=== PATIENT | female | born 1950 | race Caucasian/White ===

== ENCOUNTER 2017-03-23 13:14 | Emergency (ER) | payer MEDICARE ==
[~2017-03-23] VITALS: Ht 157.5 cm; Wt 75.0 kg
[~2017-03-23 13:14] MED LIST: ACIP20TA19 PO; AMLO5 PO; APIX2.5T PO; ATOR40TA49 PO; BUPR-175 PO; CLON1 PO; LEVA750T PO; PRED10 PO; TUSSSUS PO; Z.0.OXYGENDME FM; Z.0.OXYGENDME NC
[2017-03-23 13:16] VITALS: BP 123/87; PULSE 80; RESP 16; TEMP 98.2; O2SAT 95
[2017-03-23 13:31] VITALS: BP 156/75; PULSE 101; RESP 19; TEMP 98.7; O2SAT 100
[2017-03-23] MEDS ORDERED: [UNRECOGNIZED DRUG - CODE] IV (13:44)
[2017-03-23] MEDS ORDERED: [UNRECOGNIZED DRUG - CODE] (13:44)
[2017-03-23] MEDS ORDERED: CLON1TAB PO (13:44)
[2017-03-23] MEDS ORDERED: ATOR40TA16 PO (13:44)
[2017-03-23] MEDS ORDERED: APIX2.5T PO (13:44)
[2017-03-23] MEDS ORDERED: PEMB1SOL (13:44)
[2017-03-23] MEDS ORDERED: PROT40TA PO (13:44)
[2017-03-23] MEDS ORDERED: BUPR150XL PO (13:44)
[2017-03-23] MEDS ORDERED: FURO1TAB62 PO (13:44)
[2017-03-23 13:56] LABS: HEMATOCRIT 35.9 % (35.0-46.0); MEAN CELL VOLUME 91.8 FL (80.0-100.0); MEAN CORPUSCULAR HEMOGLOBIN 30.3 PG (27.0-34.0); PLATELET COUNT 248 TH/MM3 (150-450); RED BLOOD COUNT 3.91 MIL/MM3 (4.00-5.30); RED CELL DISTRIBUTION WIDTH 18.9 % (11.6-17.2); WHITE BLOOD COUNT 39.5 TH/MM3 (4.0-11.0)
[2017-03-23 14:04] LABS: ALT (GPT) 21 U/L (10-53); ANION GAP 4 MEQ/L (5-15); AST (GOT) 36 U/L (15-37); BLOOD UREA NITROGEN 15 MG/DL (7-18); CHLORIDE 99 MEQ/L (98-107); GLOMERULAR FILTRATION RATE 81 ML/MIN (>89); SODIUM (NA) 138 MEQ/L (136-145)
[2017-03-23 14:05] LABS: HEMO FLAGS AUTO DIFF
[2017-03-23 14:06] LABS: ALKALINE PHOSPHATASE 276 U/L (45-117); TOTAL BILIRUBIN ADULT 0.2 MG/DL (0.2-1.0)
--- NOTE | 2017-03-23 14:17 | RADRPT ---
EXAM DATE/TIME: 03/23/2017 13:29 [facility] COMPARISON: CHEST SINGLE AP, February 18, 2016, 5:53. INDICATIONS : Shortness of breath. MEDICAL HISTORY : Carcinoma, lung. SURGICAL HISTORY : Tonsillectomy. Port, right pneumonectomy, dilation and curettage ENCOUNTER: Initial ACUITY: 2 days PAIN SCORE: 0/10 LOCATION: Bilateral chest FINDINGS: Right IJ [id number] stable in position. Redemonstration of surgical changes of prior right pneumon ectomy with opacification of the right hemithorax and mediastinal shift. Minimal left basilar airspac e disease. Previousl contours are stable. Remainder of the exam is unchanged. CONCLUSION: 1. Postsurgical sutures of prior right pneumonectomy. 2. Minimal left basilar airspace disease, likely atelectasis. Nic Rai MD on March 23, 2017 at 14:13 Board Certified Radiologist. This report was verified electronically.
[2017-03-23 14:39] LABS: BANDS 13 % (0-6); NEUTROPHIL # MANUAL DIFF 37.9 TH/MM3 (1.8-7.7); OVALOCYTES 1+ (NORMAL); PLATELET ESTIMATE SMEAR NORMAL (NORMAL); PLATELET MORPHOLOGY NORMAL (NORMAL); POLYS (SEG NEUTROPHILS) 83 % (16-70); SCAN/DIFF FINAL DIFF MANUAL; WBC DIFF SAMPLE 100
--- NOTE | 2017-03-23 15:06 | PD ---
HPI Chief Complaint: Respiratory Symptoms Time Seen by Provider: 13:28 Travel History International Travel<30 days: No Contact w/Intl Traveler<30days: No Traveled to known affect area: No History of Present Illness HPI 66-year-old female who has a history of non-small cell lung cancer who presents to the emergency department with increasing shortness of breath over the past 2 days, intermittent, moderate severity associated with a low oxygen saturation. She took her oxygen saturation yesterday and today off of oxygen and it was in the 70s. She's not had any fevers or chills and denies any cough. She did recently have chemotherapy 6 days ago and received a Neulasta shot last week. She does have oxygen which she uses intermittently and she wears CPAP at night. PFSH Past Medical History Hx Anticoagulant Therapy: Yes Arthritis: Yes Anxiety: Yes Depression: Yes (MILD) Cancer: Yes (PREMELANOMA BACK AND CHEST, RIGTH LUNG,LEFT LUNG MASSES) Cardiovascular Problems: No High Cholesterol: Yes Chemotherapy: Yes Congestive Heart Failure: No Diminished Hearing: No Endocrine: No Gastrointestinal Disorders: Yes ( BARRETTS ) GERD: Yes Genitourinary: No Hepatitis: No Hiatal Hernia: No Immune Disorder: No Musculoskeletal: Yes (RIGHT KNEE) Neurologic: No Psychiatric: Yes Reproductive: No Respiratory: Yes Immunizations Current: No Migraines: Yes Sleep Apnea: Yes (GETTING NEW MACHINE) Thyroid Disease: No Menopausal: Yes Dilation and Curettage (D&C): Yes (3 X) Past Surgical History Abdominal Surgery: No AICD: No Body Medical Devices: RIGHT IMPLANTED PORT Cardiac Surgery: No Ear Surgery: No Endocrine Surgery: No Eye Surgery: No Genitourinary Surgery: No Gynecologic Surgery: Yes (D&C x3) Joint Replacement: No Oral Surgery: Yes (TONSILECTOMY) Pacemaker: No Thoracic Surgery: Yes (RIGHT PNEUMONECTOMY) Tonsillectomy: Yes Other Surgery: 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 ) Social History Alcohol Use: Yes (OCCASIONAL) Tobacco Use: No (quit 30 years ago ) Substance Use: No Allergies-Medications (Allergen,Severity, Reaction): Coded Allergies: Doxycycline (Verified Allergy, Severe, Facial swelling, 02/14/16) Versed (Verified Adverse Reaction, Severe, "Out of body experience", ) Reported Meds & Prescriptions Reported Meds & Active Scripts Active Reported Alimta Inj (Pemetrexed) 100 Mg Inj Unknown Dose IV Eliquis (Apixaban) 2.5 Mg Tab 2.5 Mg PO BID Lasix (Furosemide) 20 Mg Tab 20 Mg PO DAILY Protonix (Pantoprazole Sodium) 40 Mg Tab 40 Mg PO DAILY Wellbutrin Xl 24 HR (Bupropion HCl) 150 Mg Tab 150 Mg PO DAILY Atorvastatin (Atorvastatin Calcium) 40 Mg Tab 40 Mg PO HS Clonazepam 1 Mg Tab 1 Mg PO TID Carboplatin Inj (Carboplatin) 50 Mg/5 Ml Inj Unknown Dose Keytruda Inj (Pembrolizumab) 50 Mg Inj Unknown Dose Review of Systems Except as stated in HPI: all other systems reviewed are Neg Physical Exam Narrative GENERAL:Well appearing, no acute distress SKIN: Focused skin assessment warm and dry. HEAD: Atraumatic. Normocephalic. EYES: Pupils equal and round. No injection or drainage. ENT: Moist mucous membranes NECK: Trachea midline. CARDIOVASCULAR: Regular rate and rhythm. No murmur appreciated. RESPIRATORY: Absent breath sounds on the right, no rales or rhonchi on the left. GASTROINTESTINAL: Abdomen soft, non-tender, nondistended. MUSCULOSKELETAL: No obvious deformities. NEUROLOGICAL: Awake and alert. No obvious cranial nerve deficits. Moving all extremities. PSYCHIATRIC: Appropriate mood and affect; insight and judgment normal. Data Data Last Documented VS Vital Signs Date Time Temp Pulse Resp B/P Pulse Ox O2 Delivery O2 Flow Rate FiO2 03/23/17 13:35 100 Nasal Cannula 4 03/23/17 13:31 98.7 101 19 156/75 Orders Complete Blood Count With Diff (03/23/17 13:28) Comprehensive Metabolic Panel (03/23/17 13:28) ^ Insert Iv (03/23/17 13:28) Chest, Single Ap (03/23/17 ) Electrocardiogram (03/23/17 13:32) Ct Pulmonary Angiogram (03/23/17 ) Lactic Acid (03/23/17 14:43) Iohexol 350 Inj (Omnipaque 350 Inj) (03/23/17 15:52) Labs Laboratory Tests Test 03/23/17 03/23/17 13:30 15:00 White Blood Count 39.5 TH/MM3 Red Blood Count 3.91 MIL/MM3 Hemoglobin 11.9 GM/DL Hematocrit 35.9 % Mean Corpuscular Volume 91.8 FL Mean Corpuscular Hemoglobin 30.3 PG Mean Corpuscular Hemoglobin 33.0 % Concent Red Cell Distribution Width 18.9 % Platelet Count 248 TH/MM3 Mean Platelet Volume 8.3 FL Neutrophils (%) (Auto) % Lymphocytes (%) (Auto) % Monocytes (%) (Auto) % Eosinophils (%) (Auto) % Basophils (%) (Auto) % Neutrophils # (Auto) TH/MM3 Lymphocytes # (Auto) TH/MM3 Monocytes # (Auto) TH/MM3 Eosinophils # (Auto) TH/MM3 Basophils # (Auto) TH/MM3 CBC Comment AUTO DIFF Differential Total Cells 100 Counted Neutrophils % (Manual) 83 % Band Neutrophils % 13 % Lymphocytes % 3 % Monocytes % 1 % Neutrophils # (Manual) 37.9 TH/MM3 Differential Comment FINAL DIFF MANUAL Platelet Estimate NORMAL Platelet Morphology Comment NORMAL Ovalocytes 1+ Sodium Level 138 MEQ/L Potassium Level 4.0 MEQ/L Chloride Level 99 MEQ/L Carbon Dioxide Level 35.0 MEQ/L Anion Gap 4 MEQ/L Blood Urea Nitrogen 15 MG/DL Creatinine 0.72 MG/DL Estimat Glomerular Filtration 81 ML/MIN Rate Random Glucose 145 MG/DL Calcium Level 8.6 MG/DL Total Bilirubin 0.2 MG/DL Aspartate Amino Transf 36 U/L (AST/SGOT) Alanine Aminotransferase 21 U/L (ALT/SGPT) Alkaline Phosphatase 276 U/L Total Protein 6.4 GM/DL Albumin 2.9 GM/DL Lactic Acid Level 0.9 mmol/L MDM Medical Decision Making Medical Screen Exam Complete: Yes Emergency Medical Condition: Yes Interpretation(s) Afebrile, no tachycardia, normotensive Leukocytosis likely in the setting of Neulasta Electrolytes are reassuring Lactic acid is 0.9 Last 24 hours Impressions Chest X-Ray 03/23/17 0000 Signed Impressions: Service Date/Time: Thursday, March 23, 2017 13:29 - CONCLUSION: 1. Postsurgical sutures of prior right pneumonectomy. 2. Minimal left basilar airspace disease , likely atelectasis. Nic Rai MD CT Angiography 03/23/17 0000 Signed Impressions: Service Date/Time: Thursday, March 23, 2017 15:23 - CONCLUSION: 1. No PE is identified. 2. There are 2 pulmonary nodules in the left lower lobe that have increased in size. 3. Stable enlargement of the main pulmonary artery which may indicate pulmonary tear hypertension. Teddy Newsome MD Differential Diagnosis Pulmonary embolism, pneumonia, pleural effusion Narrative Course This is a 66-year-old female who presents to the emergency department with some shortness of breath and low oxygen saturation. She has a history of non-small cell lung cancer and is on chemotherapy. She was placed on a monitor and an IV was established. Labs demonstrate a markedly elevated white blood cell count with bandemia consistent with recent Neulasta injection. She is not febrile and otherwise does not have SIRS criteria so I doubt an infection. Chest x-ray is reassuring. A pulmonary angiogram demonstrates no PE and no pneumonia. I think patient is safe for discharge. I did speak to Dr. Gerson Perez the patient's admission nurse who said if everything came back normal he felt like her hypoxia was likely subacute and she should just use her oxygen more often at home. I think patient is safe for discharge. Diagnosis Primary Impression: Lung cancer Qualified Code: C34.90 - Malignant neoplasm of lung, unspecified laterality, unspecified part of lung Patient Instructions: General Instructions Additional Instructions: If you develop severe chest pain, shortness of breath, sweating, lightheadedness , dizziness or difficulty breathing return to the emergency department immediately. Followup with your primary care physician in 2-3 days if your symptoms are not resolved. Med/Other Pt SpecificInfo: No Change to Meds Disposition: 01 DISCHARGE HOME Condition: Stable Анна Rodrigez MD Mar 23, 2017 15:06
[2017-03-23] MEDS ORDERED: IOHEXOL 350 MG/ML 10 ML VIAL (for RAD DIAG) IV ONE (15:52)
--- NOTE | 2017-03-23 16:17 | RADRPT ---
EXAM DATE/TIME: 03/23/2017 15:23 [facility] COMPARISON: CT PULMONARY ANGIOGRAM, February 14, 2016, 20:05. INDICATIONS : Low oxygen saturation IV CONTRAST: 65 cc Omnipaque 350 (iohexol) IV RADIATION DOSE: 15.38 CTDIvol (mGy) MEDICAL HISTORY : Carcinoma, lung. Diabetes SURGICAL HISTORY : Pneumonectomy. ENCOUNTER: Initial ACUITY: 1 day PAIN SCALE: 0/10 LOCATION: chest TECHNIQUE: Volumetric scanning of the chest was performed using a pulmonary embolism protocol MIP images were re constructed. Using automated exposure control and adjustment of the mA and/or kV according to patien t size, radiation dose was kept as low as reasonably achievable to obtain optimal diagnostic quality images. DICOM format image data is available electronically for review and comparison. Follow-up recommendations for incidentally detected pulmonary nodules are based at a minimum on nodul e size and patient risk factors according to Fleischner Society Guidelines. FINDINGS: There is respiratory motion artifact. PULMONARY ARTERIES: No filling defects are seen in the pulmonary arteries through the segmental level. LUNGS: Patient is post right pneumonectomy. Complex fluid collection remains present in the right hemithorax . There is a small left pleural effusion with compressive atelectasis. In the left lower lobe there i s a 12 mm pulmonary nodule that has enlarged. It measured 5 mm previously. Also the left lower lobe i s 8 x 6 mm nodule that has enlarged. It previously measured 7 x 5 mm. No new nodule is visualized. PLEURAE: There is pleural or soft tissue thickening in the right hemithorax. Small left pleural effusion is pr esent. MEDIASTINUM: The main pulmonary artery remains enlarged measuring 4 cm in diameter. Mild atherosclerotic disease i s present. There is no lymphadenopathy. MUSCULOSKELETAL: There are degenerative changes of the thoracic spine. MISCELLANEOUS: The visualized upper abdominal organs demonstrate no acute abnormality. CONCLUSION: 1. No PE is identified. 2. There are 2 pulmonary nodules in the left lower lobe that have increased in size. 3. Stable enlargement of the main pulmonary artery which may indicate pulmonary tear hypertension. Teddy Newsome MD on March 23, 2017 at 16:09 Board Certified Radiologist. This report was verified electronically.
[2017-03-23 17:27] VITALS: BP 110/62; PULSE 93; RESP 18; O2SAT 97
--- NOTE | 2017-03-24 13:45 | EKG ---
Date Performed: 03/23/2017 Time Performed: 13:32:55 PTAGE: 66 years EKG: Sinus rhythm Since previous tracing, no significant change noted NORMAL ECG PREVIOUS TRACING : 02/14/2016 19.12 DOCTOR: Jose Maria Kemp Interpretating Date/Time 03/24/2017 13:43:24
== END 2017-03-23 18:14 | disposition home or self-care (01) ==
LOC: NEPE 13:14
DX: C34.90 Malignant neoplasm of unspecified part of unspecified bronchus or lung (principal); Z87.891 Personal history of nicotine dependence
CPT/HCPCS: 71010; 71275; 80053; 83605; 85007; 85027; 93005; 99285; Q9967

== ENCOUNTER 2017-11-28 11:23 | Emergency (ER) | payer MEDICARE ==
[~2017-11-28] VITALS: Ht 157.5 cm; Wt 75.0 kg
[~2017-11-28 11:23] MED LIST changes: -ACIP20TA19 PO; -AMLO5 PO; +ATOR40TA16 PO; -ATOR40TA49 PO; -BUPR-175 PO; +BUPR150XL PO; -CLON1 PO; +CLON1TAB PO; +FURO1TAB62 PO; -LEVA750T PO; +PEMB1SOL; -PRED10 PO; +PROT40TA PO; -TUSSSUS PO; -Z.0.OXYGENDME FM; -Z.0.OXYGENDME NC; +[UNRECOGNIZED DRUG - CODE]; +[UNRECOGNIZED DRUG - CODE] IV
[2017-11-28 11:29] VITALS: BP 93/55; PULSE 97; RESP 16; TEMP 98.4; O2SAT 98
[2017-11-28] MEDS ORDERED: SODIUM CHLOR 0.9% 1000 ML INJ 1,000 ML IV SCH (11:59)
[2017-11-28] MEDS ORDERED: ONDANSETRON HCL 4 MG/2 ML VIAL IVP ONE (12:00)
--- NOTE | 2017-11-28 12:14 | PD ---
HPI Chief Complaint: GI Complaint Time Seen by Provider: 11:37 Travel History International Travel<30 days: No Contact w/Intl Traveler<30days: No Traveled to known affect area: No History of Present Illness HPI 66-year-old female with PMH of recurrent non-small cell lung cancer S/P right pneumonectomy presents to the ED for evaluation of nausea, weakness. Patient endorses very little oral input over the last few days secondary to nausea. She takes Zofran at home with no improvement of symptoms. She denies fever, cough, chest pain, abdominal pain, dysuria. She endorses intermittent edema of the extremities, right greater than left, no worse today. She takes Eliquis secondary to history of DVT. She is being cared for by Dr. Medrano, oncology. Last palliative treatment was 4 days ago. PFSH Past Medical History Hx Anticoagulant Therapy: Yes Arthritis: Yes Anxiety: Yes Depression: Yes (MILD) Cancer: Yes (PREMELANOMA BACK AND CHEST, RIGTH LUNG,LEFT LUNG MASSES) Cardiovascular Problems: No High Cholesterol: Yes Chemotherapy: Yes Congestive Heart Failure: No Diminished Hearing: No Endocrine: No Gastrointestinal Disorders: Yes ( BARRETTS ) GERD: Yes Genitourinary: No Hepatitis: No Hiatal Hernia: No Immune Disorder: No Musculoskeletal: Yes (RIGHT KNEE) Neurologic: No Psychiatric: Yes Reproductive: No Respiratory: Yes Immunizations Current: No Migraines: Yes Sleep Apnea: Yes (GETTING NEW MACHINE) Thyroid Disease: No ?: Not Menopausal: Yes Dilation and Curettage (D&C): Yes (3 X) Past Surgical History Abdominal Surgery: No AICD: No Body Medical Devices: RIGHT IMPLANTED PORT Cardiac Surgery: No Ear Surgery: No Endocrine Surgery: No Eye Surgery: No Genitourinary Surgery: No Gynecologic Surgery: Yes (D&C x3) Joint Replacement: No Oral Surgery: Yes (TONSILECTOMY) Pacemaker: No Thoracic Surgery: Yes (RIGHT PNEUMONECTOMY) Tonsillectomy: Yes Other Surgery: 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 ) Social History Alcohol Use: Yes (OCCASIONAL) Tobacco Use: No (quit 30 years ago ) Substance Use: No Allergies-Medications (Allergen,Severity, Reaction): Coded Allergies: doxycycline (Unverified Allergy, Severe, Facial swelling, 11/28/17) midazolam (Unverified Adverse Reaction, Severe, "Out of body experience", 11/28/17) Reported Meds & Prescriptions Reported Meds & Active Scripts Active Reported Alimta Inj (Pemetrexed) 100 Mg Inj Unknown Dose IV Eliquis (Apixaban) 2.5 Mg Tab 2.5 Mg PO BID Lasix (Furosemide) 20 Mg Tab 20 Mg PO DAILY Protonix (Pantoprazole Sodium) 40 Mg Tab 40 Mg PO DAILY Wellbutrin Xl 24 HR (Bupropion HCl) 150 Mg Tab 150 Mg PO DAILY Atorvastatin (Atorvastatin Calcium) 40 Mg Tab 40 Mg PO HS Clonazepam 1 Mg Tab 1 Mg PO TID Carboplatin Inj (Carboplatin) 50 Mg/5 Ml Inj Unknown Dose Review of Systems Except as stated in HPI: all other systems reviewed are Neg Physical Exam Narrative GENERAL: Well-nourished, well-developed white female in no acute distress. SKIN: Focused skin assessment warm/dry. Port in the right upper chest. Well- healed without signs of infection. HEAD: Normocephalic. EYES: No scleral icterus. No injection or drainage. NECK: Supple, trachea midline. No JVD or lymphadenopathy. CARDIOVASCULAR: Regular rate and rhythm without murmurs, gallops, or rubs. RESPIRATORY: Breath sounds clear. Diminished on the right. No accessory muscle use. GASTROINTESTINAL: Abdomen soft, non-tender, nondistended. Active bowel sounds. MUSCULOSKELETAL: No cyanosis. Trace edema to the knee in the right leg. Homans sign negative bilaterally. BACK: Nontender without obvious deformity. No CVA tenderness. Data Data Last Documented VS Vital Signs Date Time Temp Pulse Resp B/P (MAP) Pulse Ox O2 Delivery O2 Flow Rate FiO2 11/28/17 13:47 94 16 137/76 (96) 99 Nasal Cannula 2.00 11/28/17 11:29 98.4 Orders Orders Iv Access Insert/Monitor (11/28/17 11:59) Ecg Monitoring (11/28/17 11:59) Oximetry (11/28/17 11:59) NPO (11/28/17 11:59) Ondansetron Inj (Zofran Inj) (11/28/17 12:00) Sodium Chlor 0.9% 1000 Ml Inj (Ns 1000 M (11/28/17 11:59) Complete Blood Count With Diff (11/28/17 12:06) Comprehensive Metabolic Panel (11/28/17 12:06) Prothrombin Time / Inr (Pt) (11/28/17 12:06) Act Partial Throm Time (Ptt) (11/28/17 12:06) Sodium Chloride 0.9% Flush (Ns Flush) (11/28/17 12:15) Heparin Central Flush (Heparin Central F (11/28/17 12:15) Sodium Chlor 0.9% 1000 Ml Inj (Ns 1000 M (11/28/17 12:45) Ed Discharge Order (11/28/17 13:20) Acetaminophen (Tylenol) (11/28/17 14:15) Labs Laboratory Tests Test 11/28/17 12:30 White Blood Count 4.4 TH/MM3 Red Blood Count 2.91 MIL/MM3 Hemoglobin 9.0 GM/DL Hematocrit 26.8 % Mean Corpuscular Volume 92.2 FL Mean Corpuscular Hemoglobin 30.9 PG Mean Corpuscular Hemoglobin Concent 33.6 % Red Cell Distribution Width 16.6 % Platelet Count 89 TH/MM3 Mean Platelet Volume 7.2 FL Neutrophils (%) (Auto) 81.6 % Lymphocytes (%) (Auto) 15.6 % Monocytes (%) (Auto) 1.8 % Eosinophils (%) (Auto) 0.3 % Basophils (%) (Auto) 0.7 % Neutrophils # (Auto) 3.6 TH/MM3 Lymphocytes # (Auto) 0.7 TH/MM3 Monocytes # (Auto) 0.1 TH/MM3 Eosinophils # (Auto) 0.0 TH/MM3 Basophils # (Auto) 0.0 TH/MM3 CBC Comment AUTO DIFF Differential Comment AUTO DIFF CONFIRMED Platelet Estimate LOW Platelet Morphology Comment NORMAL Ovalocytes 1+ Prothrombin Time 10.3 SEC Prothromb Time International Ratio 1.0 RATIO Activated Partial Thromboplast Time 31.7 SEC Blood Urea Nitrogen 18 MG/DL Creatinine 0.54 MG/DL Random Glucose 85 MG/DL Total Protein 6.0 GM/DL Albumin 2.8 GM/DL Calcium Level 8.5 MG/DL Alkaline Phosphatase 77 U/L Aspartate Amino Transf (AST/SGOT) 41 U/L Alanine Aminotransferase (ALT/SGPT) 41 U/L Total Bilirubin 0.6 MG/DL Sodium Level 137 MEQ/L Potassium Level 3.5 MEQ/L Chloride Level 98 MEQ/L Carbon Dioxide Level 34.0 MEQ/L Anion Gap 5 MEQ/L Estimat Glomerular Filtration Rate 113 ML/MIN MDM Medical Decision Making Medical Screen Exam Complete: Yes Emergency Medical Condition: Yes Differential Diagnosis Dehydration versus medication side effect versus metabolic derangement versus other Narrative Course 66-year-old female with PMH of recurrent non-small cell lung cancer S/P right pneumonectomy presents to the ED for evaluation of nausea, weakness. She denies fever, cough, chest pain, abdominal pain, dysuria. She endorses intermittent edema of the extremities, right greater than left, no worse today. She takes Eliquis secondary to history of DVT. She is being cared for by Dr. Medrano, oncology. Last palliative treatment was 4 days ago. Patient's afebrile, BP 93/ 55 on presentation. Exam is reassuring. IV was established. Patient was administered 2 L normal saline. Patient complained of mild headache and was administered Tylenol by mouth. No concerning abnormalities of the CBC, CMP or coags. On recheck patient reports improvement of her symptoms. BP improved to 137/76. Patient is stable and discharged for follow-up with Dr. Medrano. Diagnosis Primary Impression: Chemotherapy induced nausea and vomiting Referrals: Sheree Medrano MD Additional Instructions: Rest, hydrate. Resume at home medications as previously prescribed. Follow up with Dr. Medrano. Return to the ED for worsening symptoms or any urgent/emergent medical condition. Disposition: 01 DISCHARGE HOME Condition: Stable Marla Rodgers Nov 28, 2017 12:14
[2017-11-28] MEDS ORDERED: SODIUM CHLORIDE 0.9% FLUSH 10 ML FLUSH IV FLUSH PRN (12:15)
[2017-11-28 12:38] VITALS: RESP 20; O2SAT 90
[2017-11-28] MEDS ORDERED: SODIUM CHLOR 0.9% 1000 ML INJ 1,000 ML IV ONE (12:45)
[2017-11-28 12:52] LABS: AUTOMATED NEUTROPHIL # 3.6 TH/MM3 (1.8-7.7); BASOPHIL % 0.7 % (0.0-2.0); EOSINOPHIL % 0.3 % (0.0-4.0); HEMATOCRIT 26.8 % (35.0-46.0); LYMPH % 15.6 % (9.0-44.0); LYMPHOCYTE # 0.7 TH/MM3 (1.0-4.8); MEAN CELL VOLUME 92.2 FL (80.0-100.0); MEAN CORPUSCULAR HEMOGLOBIN 30.9 PG (27.0-34.0); MEAN CORPUSCULAR HGB CONC 33.6 % (32.0-36.0); MEAN PLATELET VOLUME 7.2 FL (7.0-11.0); MONO % 1.8 % (0.0-8.0); MONOCYTE # 0.1 TH/MM3 (0-0.9); NEUT % 81.6 % (16.0-70.0); PLATELET COUNT 89 TH/MM3 (150-450); RED BLOOD COUNT 2.91 MIL/MM3 (4.00-5.30); RED CELL DISTRIBUTION WIDTH 16.6 % (11.6-17.2); WHITE BLOOD COUNT 4.4 TH/MM3 (4.0-11.0)
[2017-11-28 13:01] LABS: PROTHROMBIN TIME - PATIENT 10.3 SEC (9.8-11.6)
[2017-11-28 13:08] LABS: ALBUMIN 2.8 GM/DL (3.4-5.0); AST (GOT) 41 U/L (15-37); BLOOD UREA NITROGEN 18 MG/DL (7-18); CALCIUM 8.5 MG/DL (8.5-10.1); CHLORIDE 98 MEQ/L (98-107); CREATININE 0.54 MG/DL (0.50-1.00); GLOMERULAR FILTRATION RATE 113 ML/MIN (>89); GLUCOSE,RANDOM 85 MG/DL (74-106); SODIUM (NA) 137 MEQ/L (136-145)
[2017-11-28 13:12] LABS: ALKALINE PHOSPHATASE 77 U/L (45-117); ALT (GPT) 41 U/L (10-53); TOTAL BILIRUBIN ADULT 0.6 MG/DL (0.2-1.0)
[2017-11-28 13:35] LABS: OVALOCYTES 1+ (NORMAL)
[2017-11-28 13:47] VITALS: BP 137/76; PULSE 94; RESP 16; O2SAT 99
--- NOTE | 2017-11-28 14:05 | PD ---
Data Data Last Documented VS Vital Signs Date Time Temp Pulse Resp B/P (MAP) Pulse Ox O2 Delivery O2 Flow Rate FiO2 11/28/17 13:47 94 16 137/76 (96) 99 Nasal Cannula 2.00 11/28/17 11:29 98.4 Orders Orders Iv Access Insert/Monitor (11/28/17 11:59) Ecg Monitoring (11/28/17 11:59) Oximetry (11/28/17 11:59) NPO (11/28/17 11:59) Ondansetron Inj (Zofran Inj) (11/28/17 12:00) Sodium Chlor 0.9% 1000 Ml Inj (Ns 1000 M (11/28/17 11:59) Complete Blood Count With Diff (11/28/17 12:06) Comprehensive Metabolic Panel (11/28/17 12:06) Prothrombin Time / Inr (Pt) (11/28/17 12:06) Act Partial Throm Time (Ptt) (11/28/17 12:06) Sodium Chloride 0.9% Flush (Ns Flush) (11/28/17 12:15) Heparin Central Flush (Heparin Central F (11/28/17 12:15) Sodium Chlor 0.9% 1000 Ml Inj (Ns 1000 M (11/28/17 12:45) Ed Discharge Order (11/28/17 13:20) Labs Laboratory Tests Test 11/28/17 12:30 White Blood Count 4.4 TH/MM3 Red Blood Count 2.91 MIL/MM3 Hemoglobin 9.0 GM/DL Hematocrit 26.8 % Mean Corpuscular Volume 92.2 FL Mean Corpuscular Hemoglobin 30.9 PG Mean Corpuscular Hemoglobin Concent 33.6 % Red Cell Distribution Width 16.6 % Platelet Count 89 TH/MM3 Mean Platelet Volume 7.2 FL Neutrophils (%) (Auto) 81.6 % Lymphocytes (%) (Auto) 15.6 % Monocytes (%) (Auto) 1.8 % Eosinophils (%) (Auto) 0.3 % Basophils (%) (Auto) 0.7 % Neutrophils # (Auto) 3.6 TH/MM3 Lymphocytes # (Auto) 0.7 TH/MM3 Monocytes # (Auto) 0.1 TH/MM3 Eosinophils # (Auto) 0.0 TH/MM3 Basophils # (Auto) 0.0 TH/MM3 CBC Comment AUTO DIFF Differential Comment AUTO DIFF CONFIRMED Platelet Estimate LOW Platelet Morphology Comment NORMAL Ovalocytes 1+ Prothrombin Time 10.3 SEC Prothromb Time International Ratio 1.0 RATIO Activated Partial Thromboplast Time 31.7 SEC Blood Urea Nitrogen 18 MG/DL Creatinine 0.54 MG/DL Random Glucose 85 MG/DL Total Protein 6.0 GM/DL Albumin 2.8 GM/DL Calcium Level 8.5 MG/DL Alkaline Phosphatase 77 U/L Aspartate Amino Transf (AST/SGOT) 41 U/L Alanine Aminotransferase (ALT/SGPT) 41 U/L Total Bilirubin 0.6 MG/DL Sodium Level 137 MEQ/L Potassium Level 3.5 MEQ/L Chloride Level 98 MEQ/L Carbon Dioxide Level 34.0 MEQ/L Anion Gap 5 MEQ/L Estimat Glomerular Filtration Rate 113 ML/MIN MDM Supervised Visit with JONO: Yes Narrative Course The history, exam, and medical decision-making in the associated mid-level provider note were completed with my assistance. I reviewed and agree with the findings presented. I attest that I had a [id number] encounter with the patient on the same day, and personally performed and documented my assessment and findings in the medical record. *My assessment and Findings: 66-year-old woman, history of metastatic malignancy, here with intractable nausea vomiting. Dehydrated. Looks well now. Improved. Given antiemetics, IV fluids. Diagnosis Primary Impression: Chemotherapy induced nausea and vomiting Referrals: Sheree Medrano MD Additional Instruction: Rest, hydrate. Resume at home medications as previously prescribed. Follow up with Dr. Medrano. Return to the ED for worsening symptoms or any urgent/emergent medical condition. Disposition: 01 DISCHARGE HOME Condition: Stable Gerson Fuller MD Nov 28, 2017 14:05
[2017-11-28] MEDS ORDERED: ACETAMINOPHEN 500 MG CPLT PO ONE (14:15)
== END 2017-11-28 15:43 | disposition home or self-care (01) ==
LOC: NEPE 11:23
DX: R11.2 Nausea with vomiting, unspecified (principal); T45.1X5A Adverse effect of antineoplastic and immunosuppressive drugs, initial encounter; E86.0 Dehydration; C34.91 Malignant neoplasm of unspecified part of right bronchus or lung; F32.9 Major depressive disorder, single episode, unspecified; F41.9 Anxiety disorder, unspecified; E78.00 Pure hypercholesterolemia, unspecified; Z86.718 Personal history of other venous thrombosis and embolism; Z87.891 Personal history of nicotine dependence
CPT/HCPCS: 80053; 85025; 85610; 85730; 96361; 96374; 99284; J2405; J7030